=== PATIENT | male | born 1985 | race Two or more races ===

== ENCOUNTER 2016-10-16 10:49 | Emergency (ER) | payer SELFPAY ==
[2016-10-16 10:52] VITALS: BP 135/85; PULSE 65; TEMP 98; BMI 25.8
--- NOTE | 2016-10-16 11:10 | PDOC ---
History of Present Illness - General Chief Complaint: Injury Stated Complaint: LACERATED RT FINGER Time Seen by Provider: 10/16/16 11:04 History Source: Patient Exam Limitations: No Limitations - History of Present Illness Initial Comments: CHIEF COMPLAINT: 31 y/o afebrile male with no significant PMH here for laceration to right finger. HISTORY OF PRESENT ILLNESS: The patient had his right 2nd digit cut with a saw at work. He denies numbness/tingling or decreased ROM of affected extremity. He is not UTD on tetanus. Vital signs on arrival are within normal limits. REVIEW OF SYSTEMS: GENERAL/CONSTITUTIONAL: No fever/chills. No weakness. No weight change. MUSCULOSKELETAL: +laceration to right 2nd finger. No neck or back pain. SKIN: No rash or easy bruising. NEUROLOGIC: No headache, vertigo, loss of consciousness, or loss of sensation. PHYSICAL EXAM: VITAL_SIGNS: within normal limits GENERAL_APPEARANCE: alert, cooperative, mild obvious discomfort. MENTAL_STATUS: speech clear, oriented X 3, responds appropriately to questions. NEURO: motor intact and sensory intact in injured extremity. EXTREMITIES: Full flexion and extension of PIP and DIP joints of affected finger. Macerated laceration to finger pad of 2nd digit with minimal bleeding SKIN: warm, dry, good color. Past History - Past Medical History Allergies/Adverse Reactions: Allergies Allergy/AdvReac Type Severity Reaction Status Date / Time No Known Allergies Allergy Verified 10/16/16 10:51 Home Medications: Ambulatory Orders NK [No Known Home Medication] 10/16/16 Other medical history: denies - Psycho/Social/Smoking Cessation Hx Suicidal Ideation: No Smoking History: Never smoked Information on smoking cessation initiated: No Hx Alcohol Use: No Drug/Substance Use Hx: No Substance Use Type: None *Physical Exam - Vital Signs Last Vital Signs Temp Pulse Resp BP Pulse Ox 98 F 65 18 135/85 99 10/16/16 10:50 10/16/16 10:50 10/16/16 10:50 10/16/16 10:50 10/16/16 10:50 Procedures - Laceration/Wound Repair Right Distal Finger Wound Length: 2.6 to 5.0 cm Wound Explored: clean Wound's Depth, Shape: into muscle, irregular, flap Irrigated w/ Saline: Yes Betadine Prep: Yes Anesthesia: 1% Lidocaine Amount of Anesthetic (ccs): 7 Suture Size/Type: 4:0 Number of Sutures: 5 Medical Decision Making - Medical Decision Making A/P: 31 y/o male with macerated laceration to right 2nd digit. Plan is as follows: 1. Tetanus 2. Xray affected finger 3. Lac repair Xray affected finger IMPRESSION: No bony abnormalities. No foreign bodies Digital block performed. The flap was tacked down with 5 sutures and patient tolerated procedure well. The wound was then covered with a non adherent dressing. The patient was informed that the flap may and that the wound will heal with a very irregular scar as there were parts that had no skin available to suture. Instructed him to keep the finger dry and covered for 24 hours, then wash gently and keep clean. Pt was instructed to return to the the ER in 7-10 days to have sutures removed and return to the ER before that for any worsening or concerning symptoms. The patient verbalizes understanding of all instructions, has no further questions and is awaiting discharge. *DC/Admit/Observation/Transfer Diagnosis at time of Disposition: Finger laceration Qualifiers: Encounter type: initial encounter Finger: index finger Damage to nail status: without damage Foreign body presence: without foreign body Laterality: right Qualified Code(s): S61.210A - Laceration without foreign body of right index finger without damage to nail, initial encounter - Discharge Dispostion Disposition: HOME Condition at time of disposition: Good - Patient Instructions Printed Discharge Instructions: DI for Laceration Repair -- Finger Additional Instructions: Discharge Instructions: -Keep wound dry for 24 hours -After 24 hours gently wash with warm soap and water -Return to the ER in 7-10 days to have sutures removed -Return to the ER sooner with any worsening or concerning symptoms - Post Discharge Activity Work/School Note: Back to Work
[2016-10-16] MEDS ORDERED: TETANUS AND DIPHTHERIA TOXOID 0.5 ML DISP.SYRIN IM ONE (12:02)
[2016-10-16] MEDS ORDERED: KETOROLAC TROMETHAMINE 60 MG/2 ML VIAL IM ONE (12:02)
[2016-10-16] MEDS ORDERED: KETOROLAC TROMETHAMINE 60 MG/2 ML VIAL ONE (12:04)
== END 2016-10-16 14:16 | disposition home or self-care (01) ==
LOC: JERFT 10:49
PROC: 0HQFXZZ Repair Right Hand Skin, External Approach (ICD-10-PCS; principal; 2016-10-16)
DX: W31.9XXA Contact with unspecified machinery, initial encounter (principal); Y93.89 Activity, other specified; Y92.9 Unspecified place or not applicable; Y99.0 Civilian activity done for income or pay
CPT/HCPCS: 73140-TC-RT; 99281-25